=== PATIENT | female | born 1995 | race Two or more races ===

== ENCOUNTER 2023-10-01 17:09 | Emergency (ER) | payer SELFPAY ==
[~2023-10-01] VITALS: Ht 170.2 cm; Wt 78.0 kg
[2023-10-01] MEDS ORDERED: ASPI-1165 PO (17:21)
[2023-10-01] MEDS ORDERED: PROCHLORPERAZINE EDISYLATE 10 MG/2 ML VIAL ONE (17:46)
[2023-10-01] MEDS ORDERED: diphenhydrAMINE 50 MG/1 ML VIAL ONE (17:46)
[2023-10-01] MEDS: IV NORMAL SALINE 1000 ML BAG IV ONE (17:51)
[2023-10-01] MEDS: PROCHLORPERAZINE EDISYLATE 10 MG/2 ML VIAL IV ONE (17:51)
[2023-10-01] MEDS: diphenhydrAMINE 50 MG/1 ML VIAL IVP ONE (17:52)
[2023-10-01 19:59] VITALS: BP 115/72; TEMP 98; O2SAT 100
== END 2023-10-01 19:46 | disposition home or self-care (01) ==
LOC: ER 17:12
DX: G43.909 Migraine, unspecified, not intractable, without status migrainosus (principal); Z79.899 Other long term (current) drug therapy; Z60.2 Problems related to living alone
CPT/HCPCS: 70450; A4606; A4663; J0780; J1200; J7040